=== PATIENT | female | born 1965 | race Hispanic/Latino ===

== ENCOUNTER 2020-04-09 06:02 | Day surgery (SDC) | payer OTHER ==
[2020-04-04 11:17] LABS: BASOPHILS % (AUTO) 0.6 % (0.0-5.0); EOSINOPHILS % (AUTO) 2.2 % (0.0-8.0); HEMATOCRIT 37.1 % (36-48); LYMPHOCYTES % (AUTO) 23.2 % (21.0-51.0); MEAN CORPUSCULAR HGB CONC 32.9 g/dL (32.0-36.0); MEAN CORPUSCULAR VOLUME 91.2 fL (79-99); NEUTROPHILS % (AUTO) 67.7 % (40.0-77.0); PLATELET COUNT (AUTO) 306 K/uL (130-400); RED BLOOD CELL COUNT(AUTO) 4.07 MIL/uL (4.00-5.50); RED CELL DISTRIBUTION WIDTH 13.2 % (11.0-15.5); WHITE BLOOD COUNT (AUTO) 6.8 K/uL (4.8-10.8)
[2020-04-04 11:31] LABS: INR 0.91 (0.85-1.15); PROTHROMBIN TIME 9.9 SEC (9.6-11.6)
[2020-04-04 11:49] LABS: CREATININE 0.7 mg/dL (0.5-1.5); POTASSIUM 3.7 mmol/L (3.5-5.1)
[2020-04-08 09:37] VITALS: BP 145/80
[~2020-04-09] VITALS: Ht 156.5 cm; Wt 68.3 kg
[2020-04-09] VITALS (22 sets, daily range): BP systolic 108–156; BP diastolic 57–80
[~2020-04-09 06:02] MED LIST: BUTA1CAP53 PO; FLUO20CA30 PO; MELO-108 PO
[2020-04-09] MEDS ORDERED: LACTATED RINGERS 1000ML 1,000 ML IV ONE (06:45)
[2020-04-09] MEDS: CEFAZOLIN SODIUM 1 GM VIAL ONE ×2 (06:53→11:08)
--- NOTE | 2020-04-09 07:28 | NUR ---
SX SCD APPLIED TO BLE
[2020-04-09] MEDS ORDERED: LIDOCAINE PF 2% 5ML ABBOJECT ONE (08:19)
[2020-04-09] MEDS ORDERED: SUCCINYLCHOLINE 200MG/10ML SYR ONE (08:19)
[2020-04-09] MEDS ORDERED: ROCURONIUM 10MG/1ML SYR 10 MG/ML ML ONE (08:20)
[2020-04-09] MEDS ORDERED: FENTANYL CITRATE PF 50 MCG/1 ML 2ML VIAL ONE (08:20)
[2020-04-09] MEDS ORDERED: PROPOFOL 10 MG/ML 20ML VIAL IV ONE (08:20)
[2020-04-09] MEDS ORDERED: EPINEPHRINE 1 MG/ML 30ML VIAL IJ ONE (09:16)
[2020-04-09] MEDS ORDERED: ROPIVACAINE 0.5% 5MG/ML 30ML IJ ONE (09:51)
[2020-04-09] MEDS ORDERED: MIDAZOLAM HCL 1 MG/ML 2ML VIAL ONE (10:25)
[2020-04-09] MEDS ORDERED: EPHEDRINE SULFATE 50 MG/ML AMPULE ONE (10:45)
[2020-04-09] MEDS ORDERED: NEOSTIGMINE 5MG/5ML SYR IV ONE (12:08)
[2020-04-09] MEDS ORDERED: ONDANSETRON HCL 4 MG/2 ML VIAL ONE ×4 (12:08→15:11)
[2020-04-09] MEDS ORDERED: KETOROLAC TROMETHAMINE 30MG/ML ONE (12:08)
[2020-04-09] MEDS ORDERED: GLYCOPYRROLATE 1 MG/5 ML SYRINGE ONE (12:08)
[2020-04-09] MEDS ORDERED: CEPH500B PO (12:34)
[2020-04-09] MEDS ORDERED: HYDR-4457 PO (12:34)
--- NOTE | 2020-04-09 14:38 | NUR ---
PER PT REQUEST I CALLED HER FRIEND MELANIE AND GAVE HER DISCHARGE INSTRUCTIONS PER DR LOWRY ORDERS..VERBALIZED UNDERSTANDING
[2020-04-09] MEDS ORDERED: ONDANSETRON HCL 4 MG/2 ML VIAL IVP SCH (15:15)
--- NOTE | 2020-04-09 15:22 | NUR ---
PT NAUSEATED..EMESIS X 1 CLEAR GREEN.GIVEN ZOFRAN. WILL OBSERVE
--- NOTE | 2020-04-09 15:50 | NUR ---
DISCHARGED PT FEELING BETTER. WANTS TO GO HOME. INSTRUCTIONS GIVEN TO PTS FRIEND. NO OTHER QUESTIONS AT THIS TIME.
== END 2020-04-09 15:55 | disposition home or self-care (01) ==
LOC: DAH 06:02
PROVIDERS: ATTEND Orthopaedic Surgery
DX: S43.401A Unspecified sprain of right shoulder joint, initial encounter (principal); M75.41 Impingement syndrome of right shoulder; M19.011 Primary osteoarthritis, right shoulder; M25.811 Other specified joint disorders, right shoulder; M75.101 Unspecified rotator cuff tear or rupture of right shoulder, not specified as traumatic; F41.9 Anxiety disorder, unspecified; Z85.3 Personal history of malignant neoplasm of breast; X58.XXXA Exposure to other specified factors, initial encounter; Z79.01 Long term (current) use of anticoagulants; Y99.0 Civilian activity done for income or pay; Y93.89 Activity, other specified; Y92.69 Other specified industrial and construction area as the place of occurrence of the external cause; Z79.899 Other long term (current) drug therapy
CPT/HCPCS: 29822; 29824; 29826; 36415; 64415; 76942; 80048; 84703; 85025; 85610; A4213; A4215; A4221; A4222; A4223; A4565; A4600; A4649 ×2; A4663; A4930; A5120; A6204; G0168; J0171; J0330; J0690; J1885; J2001; J2250; J2405 ×4; J2704; J2710; J2795; J3010; J3490 ×2; J7030; J7120 ×2; U0003